=== PATIENT | female | born 2000 | race Caucasian/White ===

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

== ENCOUNTER 2020-09-02 00:42 | Emergency (ER) | payer BC, OTHER ==
[2020-09-02 01:00] VITALS: TEMP 97.8
--- NOTE | 2020-09-02 01:19 | ED.PDOC ---
History of Present Illness - General Chief Complaint: Behavioral / Psych Stated Complaint: woke up around 0000 due to anxiety Time Seen by Provider: 09/02/20 01:14 Source: patient, RN notes reviewed, Vital Signs reviewed, family - father Exam Limitations: no limitations - History of Present Illness Initial Comments: Patient is a 19-year-old white female with a history of anxiety who was started on Prozac 2 weeks ago who awoke from sleep tonight with anxiety and chest pain. Patient palpitations. No shortness of breath or diaphoresis. There is no radiation of the chest pain. The pain was sharp and stabbing. Pain was worse when she became more anxious. It improved as she relaxed and rested. Patient has no suicidal or homicidal ideation. Things are going well at home and between her and her boyfriend. Timing/Duration: 1-3 hours Severity: severe Improving Factors: nothing Worsening Factors: nothing Associated Symptoms: chest pain, other - anxiety Allergies/Adverse Reactions: Allergies NO KNOWN ALLERGY Allergy (Verified 09/02/20 00:57) Home Medications: Ambulatory Orders FLUoxetine HCL [Prozac] 10 mg PO DAILY 09/02/20 LORazepam [Ativan] 1 mg PO BID #6 tab 09/02/20 Review of Systems - Review of Systems Constitutional: States: no symptoms reported, see HPI. Denies: chills, fever, m alaise, weakness EENTM: States: no symptoms reported. Denies: eye pain, blurred vision, double vision Respiratory: States: no symptoms reported. Denies: cough, short of breath Cardiology: States: see HPI, chest pain, palpitations. Denies: syncope Gastrointestinal/Abdominal: States: no symptoms reported. Denies: abdominal pain, diarrhea, nausea, vomiting Genitourinary: States: no symptoms reported. Denies: dysuria, frequency Musculoskeletal: States: no symptoms reported. Denies: back pain, joint pain, joint swelling, neck pain Skin: States: no symptoms reported. Denies: change in color, rash Neurological: States: no symptoms reported, anxiety. Denies: tingling, tremors, weakness Endocrine: States: no symptoms reported. Denies: increased hunger, increased thirst, increased urine Hematologic/Lymphatic: States: no symptoms reported. Denies: blood clots, easy bleeding All other Systems: Reviewed and Negative Past Medical History (General) - Patient Medical History Hx Seizures: No Hx Stroke: No Hx Dementia: No Hx Asthma: No Hx of COPD: No Hx Cardiac Disorders: No Hx Congestive Heart Failure: No Hx Pacemaker: No Hx Hypertension: No Hx Thyroid Disease: No Hx Diabetes: No Hx Gastroesophageal Reflux: No Hx Renal Disease: No Hx Cancer: No Hx of HIV: No Hx Hepatitis C: No Hx MRSA: No Surgical History: no surgical history - Vaccination History Hx Tetanus, Diphtheria Vaccination: No Hx Influenza Vaccination: No Hx Pneumococcal Vaccination: No - Social History Hx Tobacco Use: Yes Hx Chewing Tobacco Use: No Hx Alcohol Use: Yes Hx Substance Use: No Hx Substance Use Treatment: No Hx Depression: No Hx Physical Abuse: No Hx Emotional Abuse: No Hx Suspected Abuse: No - Female History Patient : No Family Medical History - Family History Mother Family History: Unknown Physical Exam - Physical Exam General Appearance: Alert, Anxious, Well Developed, Well Groomed, Well Hydrated, Well Nourished Eye Exam: bilateral normal Ears, Nose, Throat: hearing grossly normal, normal ENT inspection, normal pharynx Neck: non-tender, full range of motion, supple, normal inspection Respiratory: chest non-tender, lungs clear, normal breath sounds, no respiratory distress, no accessory muscle use Cardiovascular/Chest: normal peripheral pulses, no edema, no gallop, no JVD, no murmur, tachycardia Peripheral Pulses: radial,right: 2+, radial,left: 2+ Gastrointestinal/Abdominal: normal bowel sounds, non tender, soft Back Exam: normal inspection, no CVA tenderness, no vertebral tenderness Extremity: normal range of motion, non-tender, normal inspection Neurologic: education site manager II-XII nml as tested, no motor/sensory deficits, alert, normal mood/affect, oriented x 3 Skin Exam: normal color, warm/dry Lymphatic: no adenopathy Progress - Progress Progress: Differential diagnosis: Anxiety attack, acute AL, palpitations, depression among others. 09/02/20 01:42 Patient's EKG is negative for any acute ischemia from her heart. She is markedly improved after the IM Ativan. Plan on discharge home with follow-up with her PCP or psychiatrist. I discussed the plan of care with the patient and her father and they voiced understanding and agreement. Daniel Santiago M.D. #[id number] - Results/Orders Results/Orders: EKG performed on 02 September 2020 at 0100 hrs.: Sinus tachycardia 102 bpm, normal axis deviation, no ST or T wave changes, normal EKG. No comparison EKG available at this time. Departure - Departure Clinical Impression: Anxiety attack, Palpitations Chest pain Qualifiers: Chest pain type: other chest pain Qualified Code(s): R07.89 - Other chest pain; R07.8 - Other chest pain Time of Disposition: 01:49 Disposition: Discharge to Home or Self Care Condition: Good Departure Forms: ED Discharge - Pt. Copy, Patient Portal Self Enrollment Instructions: DI for Psychosis, Anxiety, Adult (DC), Chest Pain (DC), Palpitations (DC) Diet: resume usual diet Activity: increase activity as tolerated Referrals: Kenny Candelaria MD [Primary Care Provider] - 1-2 Days Prescriptions: LORazepam [Ativan] 1 mg PO BID #6 tab Home Medications: Ambulatory Orders FLUoxetine HCL [Prozac] 10 mg PO DAILY 09/02/20 LORazepam [Ativan] 1 mg PO BID #6 tab 09/02/20
[2020-09-02 01:42] VITALS: O2SAT 99
[2020-09-02 01:53] VITALS: BP 136/83
== END 2020-09-02 01:59 | disposition home or self-care (01) ==
LOC: ER 00:42
DX: F41.9 Anxiety disorder, unspecified (principal); R00.2 Palpitations; R07.89 Other chest pain; R00.0 Tachycardia, unspecified; Z79.899 Other long term (current) drug therapy; Z87.891 Personal history of nicotine dependence
CPT/HCPCS: 93005; J2060